=== PATIENT | male | born 1995 | race Caucasian/White ===

== ENCOUNTER 2020-11-12 17:42 | Emergency (ER) | payer OTHER, SELFPAY ==
[2020-11-12 17:50] VITALS: BP 140/84; PULSE 87; RESP 16; TEMP 36.3; O2SAT 100
[2020-11-12 18:05] LABS: Basophils Percent Auto 0.4 % (0.2-1.2); Eosinophils Absolute Auto 0.1 K/mm3 (0-0.3); Eosinophils Percent Auto 0.6 % (0-4.4); Hematocrit 43.8 % (42.0-52.0); Hemoglobin 15.3 g/dL (14.0-18.0); Immature Granulocyte Absolute 0.07 K/mm3 (0.00-0.031); Immature Granulocyte Percent A 0.6 % (0-0.5); Lymphocytes Absolute Auto 2.39 K/mm3 (0.9-3.2); Lymphocytes Percent Auto 21.1 % (18.3-44.2); Mean Corpuscular HGB Conc 34.9 g/dl (32-36); Mean Corpuscular Hemoglobin 30.7 pg (26-34); Mean Platelet Volume 12.1 fl (7.4-10.4); Monocytes Absolute Auto 0.7 K/mm3 (0.1-0.6); Monocytes Percent Auto 5.7 % (2.6-8.5); Neutrophils Absolute Auto 8.1 K/mm3 (1.3-6.7); Neutrophils Percent Auto 71.6 % (45.5-73.1); Platelet Count Result 263 k/mm3 (150-375); Red Blood Count 4.98 M/mm3 (4.6-6.20); Red Cell Distribution Width 12.4 % (11.5-14.5); White Blood Count 11.3 K/mm3 (4.5-10.0)
[2020-11-12 18:14] LABS: Prothrombin Time 13.3 Seconds (11.1-14.7)
[2020-11-12 18:15] LABS: Partial Thromboplastin Time 32.7 SECONDS (22.3-36.8)
[2020-11-12 18:17] LABS: Alanine Aminotransferase 21 U/L (4-50); Albumin Level 4.3 g/dL (3.5-5.1); Alkaline Phosphatase 70 U/L (38-126); Anion Gap 9 mmol/L (8-16); Aspartate Amino Transferase 22 U/L (17-59); Bilirubin,Total 0.3 mg/dL (0.2-1.3); Blood Urea Nitrogen 14 mg/dL (9-20); Calcium 9.1 mg/dL (8.4-10.2); Carbon Dioxide 26 mmol/L (22-30); Chloride 107 mmol/L (98-107); Estimated CRCL calculation 127 ml/min; Estimated Glomerular Filt Rate > 60; Glucose 103 mg/dL (75-110); Potassium 3.8 mmol/L (3.4-5.0); Sodium 142 mmol/L (137-145)
[2020-11-12 18:48] VITALS: BP 113/68; PULSE 75; RESP 16; O2SAT 100
[2020-11-12 18:52] VITALS: BP 148/95; PULSE 77; RESP 18; O2SAT 99
--- NOTE | 2020-11-12 19:26 | ED.GIBLEED ---
HPI - GI Bleed General Chief complaint: GI Bleed Stated complaint: blood in stool Time Seen by Provider: 11/12/20 19:02 Source: patient Mode of arrival: ambulatory Limitations: no limitations History of Present Illness HPI Narrative: 25-year-old with no major medical problems here with complaints of on and off bright red blood per rectum for past 2 days. He states that he has blood with a bowel movement. He denies any abdominal pain, lightheadedness or dizziness. He denies any history of hemorrhoids or previous history of rectal bleeding. MD complaint: blood streaked stool Onset (ago): day(s) (3) Pain Consistency: intermittent Relieving factors: none Associated symptoms: denies other symptoms Related Data Allergies Allergy/AdvReac Type Severity Reaction Status Date / Time No Known Allergies Allergy Verified 11/12/20 18:51 Review of Systems Review of Systems: All systems reviewed & are unremarkable except as noted in HPI and below Constitutional: Constitutional: Reports no additional constitutional complaints Eyes: Eyes: Reports no additional eye complaints ENT: Reports system reviewed and no additional complaints, except as documented Cardiovascular: Cardiovascular: Reports no additional cardiovascular complaints Respiratory: Respiratory: Reports no additional respiratory complaints Gastrointestinal: Gastrointestinal: Reports as per HPI Musculoskeletal: Musculoskeletal: Reports no additional musculoskeletal complaints Neurologic: Reports system reviewed and no additional complaints, except as documented PMFSH Social History Social History Gender identity (if verbalized by the patient): Male Exam Narrative: Exam Narrative: GENERAL: Well-appearing, well-nourished, and in no acute distress. HEAD: Normocephalic, atraumatic. EYES: PERRLA and EOMI. NECK: Supple. CHEST: Clear to auscultation. No respiratory distress. HEART: Regular rate and rhythm. No murmur heard. Normal peripheral pulses. ABDOMEN: Soft, nontender, nondistended, normal active bowel sounds. Rectal no obvious external hemorrhoids noted no blood on the glove EXTREMITIES: Normal range of motion. No edema. SKIN: Warm, dry, no rash. NEURO: No focal deficits. Alert and oriented x3. PSYCH: Normal mood and affect. Course Vital Signs Vital signs: Vital Signs Temperature 36.3 C L 11/12/20 17:50 Pulse Rate 87 11/12/20 17:50 Respiratory Rate 16 11/12/20 17:50 Blood Pressure 140/84 11/12/20 17:50 Pulse Oximetry 100 11/12/20 17:50 Temperature 36.3 C L 11/12/20 17:50 Pulse Rate 77 11/12/20 18:52 Respiratory Rate 18 11/12/20 18:52 Blood Pressure 148/95 H 11/12/20 18:52 Pulse Oximetry 99 11/12/20 18:52 MDM - GI Bleed MDM Narrative Medical decision making narrative: With a history of rectal bleeding will do CBC chemistry make sure that his hemoglobin is stable his physical exam is unremarkable most likely his cause of bleeding could be internal hemorrhoids. Lab Data Result diagrams: 11/12/20 17:56 11/12/20 17:56 Labs: Lab Results 11/12/20 11/12/20 11/12/20 Range/Units 17:56 17:56 17:56 WBC 11.3 H (4.5-10.0) K/mm3 RBC 4.98 (4.6-6.20) M/mm3 Hgb 15.3 (14.0-18.0) g/dL Hct 43.8 (42.0-52.0) % MCV 88.0 (80-100) fl MCH 30.7 (26-34) pg MCHC 34.9 (32-36) g/dl RDW 12.4 (11.5-14.5) % Plt Count 263 (150-375) k/mm3 MPV 12.1 H (7.4-10.4) fl Immature Gran % (Auto) 0.6 H (0-0.5) % Neut % (Auto) 71.6 (45.5-73.1) % Lymph % (Auto) 21.1 (18.3-44.2) % [place] % (Auto) 5.7 (2.6-8.5) % Eos % (Auto) 0.6 (0-4.4) % Baso % (Auto) 0.4 (0.2-1.2) % Lymph # (Auto) 2.39 (0.9-3.2) K/mm3 [place] # (Auto) 0.7 H (0.1-0.6) K/mm3 Eos # (Auto) 0.1 (0-0.3) K/mm3 Baso # (Auto) 0.0 (0.0-0.1) K/mm3 Abs Immat Gran (auto) 0.07 H (0.00-0.031) K/mm3 Absolute Neuts (auto
[2020-11-12 19:49] VITALS: BP 139/94; PULSE 66; RESP 18; O2SAT 100
== END 2020-11-12 19:50 | disposition home or self-care (01) ==
PROVIDERS: Emergency Medicine; Emergency Provider Family Medicine
DX: K62.5 Hemorrhage of anus and rectum (principal)
CPT/HCPCS: 36415; 80053; 85025; 85610; 85730; 99283